=== PATIENT | male | born 1945 | race Caucasian/White ===

== ENCOUNTER 2025-08-22 12:41 | Emergency (ER) | payer MEDICARE, OTHER ==
[2025-08-22 15:14] LABS: #Basophils 0.05 10x3/uL (0.0-0.2); #Eosinophils 0.31 10x3/uL (0.0-0.5); #Monocytes 0.96 10x3/uL (0.0-1.1); #Neutrophils 5.57 10x3/uL (1.5-8.4); %Basophils 0.5 % (0.0-2.0); %Eosinophils 3.4 % (0.0-6.0); %Lymphocytes 24.2 % (18.0-47.0); %Monocytes 10.5 % (0.0-10.0); %Neutrophils 61.2 % (40.0-75.0); Hematocrit 31.7 % (38.8-50.0); Hemoglobin 9.9 g/dL (13.5-17.5); Mean Corpuscular Hemoglobin 29.0 pg (27.0-33.0); Mean Corpuscular Volume 93.0 fL (81.2-95.1); Platelet Count 287 10x3/uL (150-450); Red Blood Cell (RBC) Count 3.41 10x6/uL (4.32-5.72); White Blood Cell (WBC) Count 9.12 10x3/uL (3.5-10.5)
[2025-08-22 15:54] LABS: ALT (SGPT) 15 U/L (Less than 45); AST (SGOT) 16 U/L (11-34); Albumin 3.3 g/dL (3.1-4.5); Alkaline Phosphatase 82 U/L (40-110); Anion Gap 14 mmol/L (10-20); BUN (Urea Nitrogen) 16 mg/dL (8.4-25.7); Bilirubin, Total 0.3 mg/dL (0.3-1.2); Calc. Creatinine Clearance 0 mL/min (70-130); Calcium 8.7 mg/dL (7.8-10.44); Carbon Dioxide 23 mmol/L (23-31); Chloride 107 mmol/L (98-107); Globulin 3.9 g/dL (2.4-3.5); Glucose 95 mg/dL (83-110); Potassium 4.2 mmol/L (3.5-5.1); Sodium 140 mmol/L (136-145)
[2025-08-22 15:55] LABS: INR-International Normal Ratio 1.1; PTT 30.4 sec (22.0-33.0); Prothrombin Time 11.7 sec (9.5-12.1)
== END 2025-08-22 16:50 | disposition home or self-care (01) ==
LOC: CSHERS 12:41
DX: R60.0 Localized edema (principal); I11.0 Hypertensive heart disease with heart failure; I50.9 Heart failure, unspecified; E11.9 Type 2 diabetes mellitus without complications; Z95.5 Presence of coronary angioplasty implant and graft; Z79.02 Long term (current) use of antithrombotics/antiplatelets; Z79.899 Other long term (current) drug therapy; Z79.84 Long term (current) use of oral hypoglycemic drugs
CPT/HCPCS: 36415; 80053; 83880; 85025; 85610; 85730; 93005

== ENCOUNTER 2025-11-11 07:53 | Observation (INO) | payer OTHER ==
[2025-11-11 08:32] LABS: #Basophils Less than 0.03 10x3/uL (0.0-0.2); #Eosinophils 0.15 10x3/uL (0.0-0.5); #Monocytes 0.47 10x3/uL (0.0-1.1); #Neutrophils 4.63 10x3/uL (1.5-8.4); %Basophils 0.2 % (0.0-2.0); %Eosinophils 2.3 % (0.0-6.0); %Lymphocytes 19.6 % (18.0-47.0); %Monocytes 7.2 % (0.0-10.0); %Neutrophils 70.4 % (40.0-75.0); Hematocrit 30.1 % (38.8-50.0); Hemoglobin 10.0 g/dL (13.5-17.5); Mean Corpuscular Hemoglobin 28.2 pg (27.0-33.0); Mean Corpuscular Volume 85.0 fL (81.2-95.1); Platelet Count 303 10x3/uL (150-450); Red Blood Cell (RBC) Count 3.54 10x6/uL (4.32-5.72); White Blood Cell (WBC) Count 6.57 10x3/uL (3.5-10.5)
[2025-11-11 08:45] LABS: ALT (SGPT) Less than 7 U/L (Less than 45); AST (SGOT) 11 U/L (11-34); Albumin 2.4 g/dL (3.1-4.5); Alkaline Phosphatase 72 U/L (40-110); Anion Gap 17 mmol/L (10-20); BUN (Urea Nitrogen) 51 mg/dL (8.4-25.7); Bilirubin, Total 0.1 mg/dL (0.3-1.2); Calc. Creatinine Clearance 0 mL/min (70-130); Calcium 8.3 mg/dL (7.8-10.44); Carbon Dioxide 23 mmol/L (23-31); Chloride 96 mmol/L (98-107); Globulin 5.0 g/dL (2.4-3.5); Glucose 165 mg/dL (83-110); Potassium 3.5 mmol/L (3.5-5.1); Sodium 132 mmol/L (136-145)
[2025-11-11 09:56] LABS: Troponin I 0.024 ng/mL (< 0.028)
[2025-11-11] MEDS ORDERED: Acetaminophen 325 MG TAB PO PRN (12:16)
[2025-11-11] MEDS ORDERED: Dextrose 50% Abboject 50 ML SYRINGE SLOW IVP PRN (12:16)
[2025-11-11] MEDS ORDERED: Ondansetron PF 4 MG/2 ML Vial IVP PRN (12:16)
[2025-11-11] MEDS ORDERED: Glucagon 1 MG/ML KIT IM PRN (12:16)
[2025-11-11 15:15] VITALS: BMI 32.1
[2025-11-11] MEDS: Benzonatate 100 MG CAP PO SCH (16:18)
[2025-11-11] MEDS: Famotidine 20 MG TAB PO SCH (20:33)
[2025-11-11] MEDS ORDERED: Vancomycin 1 GM in Sodium Chloride 0.9% 250 ML 300 ML IVPB SCH (21:00)
[2025-11-12] MEDS: ALPRAZolam 0.25 MG TAB PO PRN (02:00)
[2025-11-12] MEDS: Melatonin 3 MG TAB PO PRN (02:00)
[2025-11-12 04:38] LABS: #Basophils Less than 0.03 10x3/uL (0.0-0.2); #Eosinophils 0.19 10x3/uL (0.0-0.5); #Monocytes 0.49 10x3/uL (0.0-1.1); #Neutrophils 4.11 10x3/uL (1.5-8.4); %Basophils 0.2 % (0.0-2.0); %Eosinophils 3.2 % (0.0-6.0); %Lymphocytes 19.4 % (18.0-47.0); %Monocytes 8.2 % (0.0-10.0); %Neutrophils 68.7 % (40.0-75.0); Hematocrit 27.9 % (38.8-50.0); Hemoglobin 9.2 g/dL (13.5-17.5); Mean Corpuscular Hemoglobin 28.6 pg (27.0-33.0); Mean Corpuscular Volume 86.6 fL (81.2-95.1); Platelet Count 301 10x3/uL (150-450); Red Blood Cell (RBC) Count 3.22 10x6/uL (4.32-5.72); White Blood Cell (WBC) Count 5.98 10x3/uL (3.5-10.5)
[2025-11-12 04:52] LABS: Anion Gap 13 mmol/L (10-20); BUN (Urea Nitrogen) 45 mg/dL (8.4-25.7); Calc. Creatinine Clearance 41 mL/min (70-130); Calcium 7.9 mg/dL (7.8-10.44); Carbon Dioxide 24 mmol/L (23-31); Chloride 104 mmol/L (98-107); Glucose 174 mg/dL (83-110); Potassium 4.0 mmol/L (3.5-5.1); Sodium 137 mmol/L (136-145)
[2025-11-12 05:15] LABS: Free T4 (Free Thyroxine) 0.94 ng/dL (0.70-1.48)
[2025-11-12 08:28] VITALS: BP 115/66; TEMP 98
[2025-11-12] MEDS: Aspirin 81 mg Enteric Coated Tablet PO SCH (08:40)
== END 2025-11-12 11:49 | disposition home or self-care (01) ==
LOC: CSHERS 07:53 → CSHTELE 12:13
PROVIDERS: ADMIT Student in an Organized Health Care Education/Training Program; ATTEND Student in an Organized Health Care Education/Training Program
DX: I12.9 Hypertensive chronic kidney disease with stage 1 through stage 4 chronic kidney disease, or unspecified chronic kidney disease (principal); E11.22 Type 2 diabetes mellitus with diabetic chronic kidney disease; N17.9 Acute kidney failure, unspecified; N18.30 Chronic kidney disease, stage 3 unspecified; D64.9 Anemia, unspecified; E87.1 Hypo-osmolality and hyponatremia; Z88.8 Allergy status to other drugs, medicaments and biological substances; Z79.85 Long-term (current) use of injectable non-insulin antidiabetic drugs; Z79.84 Long term (current) use of oral hypoglycemic drugs; Z79.899 Other long term (current) drug therapy; Z95.1 Presence of aortocoronary bypass graft; Z95.818 Presence of other cardiac implants and grafts
CPT/HCPCS: 71045; 80048; 80053; 82962; 83605; 83880; 84439; 84443; 84481; 84484; 85025 ×2; 86850; 86900; 86901; 87428; 93005; 99285; G0378 ×3; J1815; J7030 ×2; 36415; 36416; 82274; 93010; 94760

== ENCOUNTER 2025-11-12 14:13 | Inpatient (IN) | payer OTHER ==
[2025-11-12 15:01] LABS: Actual Bicarbonate (HCO3v) 22.5 mEq/L (22-28); Analyzer IN Cardio CS ER; Base Excess -0.7 mEq/L (-2 - +2); Calcium, Ionized (venous) 0.99 mmol/L (1.16-1.32); Chloride (VBG) 103 mmol/L (98-106); Hematocrit-VBG 35 % (42.0-52.0); Hemoglobin (Hb) 12.0 g/dL (12.6-17.4); Potassium (VBG) 4.76 mmol/L (3.70-5.30); Puncture Site Other Site; RapidComm Collect By LAB; Sodium 138 mmol/L (133-146)
[2025-11-12] MEDS ORDERED: Dexamethasone 10 MG/ML VIAL ONE (15:08)
[2025-11-12 15:10] LABS: #Basophils Less than 0.03 10x3/uL (0.0-0.2); #Eosinophils 0.15 10x3/uL (0.0-0.5); #Monocytes 0.51 10x3/uL (0.0-1.1); #Neutrophils 7.31 10x3/uL (1.5-8.4); %Basophils 0.1 % (0.0-2.0); %Eosinophils 1.7 % (0.0-6.0); %Lymphocytes 6.7 % (18.0-47.0); %Monocytes 5.9 % (0.0-10.0); %Neutrophils 85.1 % (40.0-75.0); Hematocrit 31.6 % (38.8-50.0); Hemoglobin 10.2 g/dL (13.5-17.5); Mean Corpuscular Hemoglobin 28.3 pg (27.0-33.0); Mean Corpuscular Volume 87.5 fL (81.2-95.1); Platelet Count 347 10x3/uL (150-450); Red Blood Cell (RBC) Count 3.61 10x6/uL (4.32-5.72); White Blood Cell (WBC) Count 8.60 10x3/uL (3.5-10.5)
[2025-11-12 15:20] LABS: ALT (SGPT) Less than 7 U/L (Less than 45); AST (SGOT) 8 U/L (11-34); Albumin 2.5 g/dL (3.1-4.5); Alkaline Phosphatase 94 U/L (40-110); Anion Gap 16 mmol/L (10-20); BUN (Urea Nitrogen) 43 mg/dL (8.4-25.7); Bilirubin, Total 0.3 mg/dL (0.3-1.2); Calc. Creatinine Clearance 0 mL/min (70-130); Calcium 8.0 mg/dL (7.8-10.44); Carbon Dioxide 22 mmol/L (23-31); Chloride 102 mmol/L (98-107); Globulin 4.7 g/dL (2.4-3.5); Glucose 259 mg/dL (83-110); Potassium 5.0 mmol/L (3.5-5.1); Sodium 135 mmol/L (136-145)
[2025-11-12 15:26] LABS: Troponin I Less than 0.010 ng/mL (< 0.028)
[2025-11-12 15:28] LABS: Lipase 39 U/L (8-78)
[2025-11-12 16:09] LABS: Glucose, Urine (Dipstick) >=1000 mg/dL (Negative); Leukocyte 500 (Negative); Protein, Urine (Dipstick) 100 mg/dl (Neg-Trace); Specific Gravity, Urine 1.010 (1.005-1.030)
[2025-11-12 16:33] LABS: Bacteria/HPF 3+ HPF (None Seen); CAUTI Indications for Culture Alt mental st,lethar; Mucous/LPF 1+ LPF (<2+); WBC/HPF Greater than 50 HPF (0-3)
[2025-11-12 16:34] LABS: Urine Culture Reflex Yes Yes
[2025-11-12] MEDS ORDERED: cefTRIAXone (ROCEPHIN) 2 GM VIAL ONE (17:38)
[2025-11-12 21:15] VITALS: BMI 30.9
[2025-11-12] MEDS: Gabapentin 300 MG CAP PO SCH (22:47)
[2025-11-12] MEDS: Enoxaparin 30 MG (0.3 mL) SYRINGE SC SCH (22:47)
[2025-11-12] MEDS: ALPRAZolam 0.25 MG TAB PO PRN (22:55)
[2025-11-13] MEDS: HYDROcodone/Acetaminophen 10/325 mg Tablet PO SCH (01:04)
[2025-11-13 04:21] LABS: #Basophils Less than 0.03 10x3/uL (0.0-0.2); #Eosinophils Less than 0.03 10x3/uL (0.0-0.5); #Monocytes 0.11 10x3/uL (0.0-1.1); #Neutrophils 6.00 10x3/uL (1.5-8.4); %Basophils 0.0 % (0.0-2.0); %Eosinophils 0.0 % (0.0-6.0); %Lymphocytes 9.4 % (18.0-47.0); %Monocytes 1.6 % (0.0-10.0); %Neutrophils 88.4 % (40.0-75.0); Hematocrit 28.7 % (38.8-50.0); Hemoglobin 9.4 g/dL (13.5-17.5); Mean Corpuscular Hemoglobin 28.5 pg (27.0-33.0); Mean Corpuscular Volume 87.0 fL (81.2-95.1); Platelet Count 320 10x3/uL (150-450); Red Blood Cell (RBC) Count 3.30 10x6/uL (4.32-5.72); White Blood Cell (WBC) Count 6.79 10x3/uL (3.5-10.5)
[2025-11-13 04:41] LABS: Anion Gap 16 mmol/L (10-20); BUN (Urea Nitrogen) 47 mg/dL (8.4-25.7); Calc. Creatinine Clearance 37 mL/min (70-130); Calcium 8.1 mg/dL (7.8-10.44); Carbon Dioxide 20 mmol/L (23-31); Chloride 100 mmol/L (98-107); Magnesium 2.3 mg/dL (1.6-2.6); Potassium 5.1 mmol/L (3.5-5.1); Sodium 131 mmol/L (136-145)
[2025-11-13 04:46] LABS: Glucose 560 mg/dL (83-110)
[2025-11-13] MEDS: Lantus 1000 UNITS/10 ML VIAL SC SCH ×2 (05:39→23:07)
[2025-11-13] MEDS ORDERED: Glucagon 1 MG/ML KIT IM PRN (07:46)
[2025-11-13] MEDS ORDERED: Dextrose 50% Abboject 50 ML SYRINGE SLOW IVP PRN (07:46)
[2025-11-13] MEDS: Mirabegron ER 25 MG ER.TAB PO SCH (08:55)
[2025-11-13] MEDS: Furosemide 40 MG TAB PO SCH (08:56)
[2025-11-13] MEDS: Gabapentin 300 MG CAP PO SCH (15:06)
[2025-11-13] MEDS: cefTRIAXone\\ROCEPHIN 2 GM in Sodium Chloride 0.9% 100 ML IVPB SCH (16:54)
[2025-11-13] MEDS ORDERED: Lantus 1000 UNITS/10 ML VIAL SC SCH (21:00)
[2025-11-13] MEDS ORDERED: Non-Formulary Medication 1 EACH (Tadalafil [Tadalafil] 5 MG Tablet) PO SCH (21:00)
[2025-11-13] MEDS: Enoxaparin 30 MG (0.3 mL) SYRINGE SC SCH (22:59)
[2025-11-14] MEDS ORDERED: Baclofen 10 MG TAB PO PRN (00:12)
[2025-11-14 04:28] LABS: #Basophils Less than 0.03 10x3/uL (0.0-0.2); #Eosinophils Less than 0.03 10x3/uL (0.0-0.5); #Monocytes 0.56 10x3/uL (0.0-1.1); #Neutrophils 9.90 10x3/uL (1.5-8.4); %Basophils 0.0 % (0.0-2.0); %Eosinophils 0.0 % (0.0-6.0); %Lymphocytes 8.1 % (18.0-47.0); %Monocytes 4.9 % (0.0-10.0); %Neutrophils 86.4 % (40.0-75.0); Hematocrit 31.1 % (38.8-50.0); Hemoglobin 9.9 g/dL (13.5-17.5); Mean Corpuscular Hemoglobin 27.6 pg (27.0-33.0); Mean Corpuscular Volume 86.6 fL (81.2-95.1); Platelet Count 404 10x3/uL (150-450); Red Blood Cell (RBC) Count 3.59 10x6/uL (4.32-5.72); White Blood Cell (WBC) Count 11.46 10x3/uL (3.5-10.5)
[2025-11-14 04:47] LABS: Anion Gap 17 mmol/L (10-20); BUN (Urea Nitrogen) 48 mg/dL (8.4-25.7); Calc. Creatinine Clearance 47 mL/min (70-130); Calcium 8.7 mg/dL (7.8-10.44); Carbon Dioxide 21 mmol/L (23-31); Chloride 102 mmol/L (98-107); Glucose 203 mg/dL (83-110); Potassium 5.3 mmol/L (3.5-5.1); Sodium 135 mmol/L (136-145)
[2025-11-14 08:57] VITALS: TEMP 97.5
[2025-11-14 12:49] VITALS: BP 113/61
[2025-11-14 13:03] LABS: Anion Gap 15 mmol/L (10-20); BUN (Urea Nitrogen) 45 mg/dL (8.4-25.7); Calc. Creatinine Clearance 50 mL/min (70-130); Calcium 8.5 mg/dL (7.8-10.44); Carbon Dioxide 22 mmol/L (23-31); Chloride 101 mmol/L (98-107); Glucose 226 mg/dL (83-110); Potassium 4.6 mmol/L (3.5-5.1); Sodium 133 mmol/L (136-145)
== END 2025-11-14 14:27 | disposition home or self-care (01) | DRG 683 ==
LOC: CSHERS 14:13 → CSHTELE 18:38
PROVIDERS: ADMIT Student in an Organized Health Care Education/Training Program; ATTEND Internal Medicine
PROC: 3E03329 Introduction of Other Anti-infective into Peripheral Vein, Percutaneous Approach (ICD-10-PCS; principal; 2025-11-13)
PROC: 0T7D7ZZ Dilation of Urethra, Via Natural or Artificial Opening (ICD-10-PCS; 2025-11-13)
PROC: 0T9B70Z Drainage of Bladder with Drainage Device, Via Natural or Artificial Opening (ICD-10-PCS; 2025-11-13)
DX: N17.9 Acute kidney failure, unspecified (principal); I13.0 Hypertensive heart and chronic kidney disease with heart failure and stage 1 through stage 4 chronic kidney disease, or unspecified chronic kidney disease; N13.8 Other obstructive and reflux uropathy; N13.6 Pyonephrosis; I25.10 Atherosclerotic heart disease of native coronary artery without angina pectoris; E78.5 Hyperlipidemia, unspecified; Z98.890 Other specified postprocedural states; N18.30 Chronic kidney disease, stage 3 unspecified; Z95.1 Presence of aortocoronary bypass graft; E03.9 Hypothyroidism, unspecified; D63.1 Anemia in chronic kidney disease; E11.51 Type 2 diabetes mellitus with diabetic peripheral angiopathy without gangrene; N40.1 Benign prostatic hyperplasia with lower urinary tract symptoms; E11.65 Type 2 diabetes mellitus with hyperglycemia; I50.9 Heart failure, unspecified; N40.0 Benign prostatic hyperplasia without lower urinary tract symptoms; Z95.5 Presence of coronary angioplasty implant and graft; Z88.8 Allergy status to other drugs, medicaments and biological substances; Z89.431 Acquired absence of right foot; R39.14 Feeling of incomplete bladder emptying; N35.911 Unspecified urethral stricture, male, meatal; R33.8 Other retention of urine; G25.0 Essential tremor; B95.1 Streptococcus, group B, as the cause of diseases classified elsewhere
CPT/HCPCS: 36415; 36416; 70450; 71045; 71250; 74176; 80048; 81001; 82140; 82805; 83605; 83690; 83735; 83880; 84443; 84484; 85025; 87077; 87086; 93005; 94760; 96365; 96375; J0696; J1100; J1650; J1815; J7030